=== PATIENT | male | born 2000 | race Caucasian/White ===

== ENCOUNTER 2022-01-15 15:58 | Emergency (ER) | payer BC, SELFPAY ==
--- NOTE | 2022-01-15 16:00 | DI.RAD_ITS ---
Exam(s) XR WRIST RT COMPLETE EXAM: XR WRIST RT COMPLETE CLINICAL HISTORY: dist radius pain. TECHNIQUE: 2D digital imaging was performed. COMPARISON: No exams were available for comparison FINDINGS: Four views There is a displaced fracture of the distal radius as well as fracture displacement of the ulnar styl oid. The radial fracture involves the radiocarpal joint and there is an element of dorsal dislocatio n.. There is no fracture of the scaphoid and scapholunate distance is normal. IMPRESSION: Intra-articular comminuted fracture dislocation of the distal radius. Also displaced fracture of the ulnar styloid. DATA REPOSITORY: RADIATION DOSE DELIVERED:
[2022-01-15 16:01] VITALS: BP 120/75; PULSE 77; TEMP 37.2; O2SAT 99
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
[2022-01-15] MEDS: HYDROcodone 5/Acetaminophen 325 TAB PO (16:17)
--- NOTE | 2022-01-15 17:00 | DI.RAD_ITS ---
Exam(s) XR FOREARM RT EXAM: XR FOREARM RT CLINICAL HISTORY: proximal pain, distal fx. TECHNIQUE: 2D digital imaging was performed. COMPARISON: CR,XR XR WRIST RT COMPLETE from 01/15/2022 FINDINGS: Two in splint views, compared to earlier same date. On these post reduction images distal radius fracture is again noted with significant displacement. Also ulnar styloid fracture again noted. IMPRESSION: DATA REPOSITORY: RADIATION DOSE DELIVERED:
[2022-01-15 17:05] LABS: Source Nasal/Nares
--- NOTE | 2022-01-15 17:09 | DI.VRAD_ITS ---
PROCEDURE INFORMATION: Exam: XR Right Wrist Exam date and time: 01/15/2022 4:35 PM Age: 21 years old Clinical indication: Wrist; Right; Patient HX: Distal radius pain TECHNIQUE: Imaging protocol: Radiologic exam of the Right wrist. Views: 3 or more views. COMPARISON: No relevant prior studies available. FINDINGS: Bones/joints: Ulna styloid fracture. Intra-articular distal radial fracture dislocation. Soft tissues: Soft tissue swelling of the wrist and arm. IMPRESSION: 1. Intra-articular comminuted fracture dislocation distal radius. 2. Ulna styloid fracture. Dictated and Authenticated by: Gosia Del Rio MD. Ordering:BJ Smith MD
--- NOTE | 2022-01-15 17:39 | DI.VRAD_ITS ---
PROCEDURE INFORMATION: Exam: XR Right Forearm Exam date and time: 01/15/2022 5:28 PM Age: 21 years old Clinical indication: Other: Proximal pain, distal FX TECHNIQUE: Imaging protocol: Radiologic exam of the Right forearm. Views: 2 views. COMPARISON: CR XR WRIST RT COMPLETE 03/15/2022 16:35 FINDINGS: Bones/joints: Post reduction films limited due to overlying plaster cast. Again noted ulna styloid fracture. In improved anatomic position. Intra-articular distal radial fracture again noted with ventral displacement of the fracture fragments relative to the radial shaft. Soft tissues: Unremarkable. IMPRESSION: Post reduction images wrist fracture. Distal radial fracture fragment is ventrally located in reference to the radial shaft. Dictated and Authenticated by: Gosia Del Rio MD. Ordering:BJ Smith MD
[2022-01-15 17:58] LABS: COVID-19 PCR Negative (Negative)
== END 2022-01-15 17:56 | disposition home or self-care (01) ==
PROVIDERS: Emergency Provider Emergency Medicine
DX: S52.501A Unspecified fracture of the lower end of right radius, initial encounter for closed fracture (principal); S52.611A Displaced fracture of right ulna styloid process, initial encounter for closed fracture; Z20.822 Contact with and (suspected) exposure to COVID-19; V29.00XA Motorcycle driver injured in collision with unspecified motor vehicles in nontraffic accident, initial encounter; V87.8XXA Person injured in other specified noncollision transport accidents involving motor vehicle (traffic), initial encounter; Y93.I9 Activity, other involving external motion
CPT/HCPCS: 29125; 87635; 99284; 73090; 73110

== ENCOUNTER 2022-01-16 11:29 | Day surgery (SDC) | payer BC, SELFPAY ==
[2022-01-16] VITALS (16 sets, daily range): BP systolic 103–121; BP diastolic 41–80; PULSE 56–78; RESP 12–18; TEMP 36.3–37.1; O2SAT 96–99; BMI 25.1
--- NOTE | 2022-01-16 13:44 | W.ANESPRE ---
General Info Date of Service Date Performed: 01/16/22 Height: 6 ft Weight: 84.1 kg Body Mass Index (BMI): 25.1 Surgical Procedure: Operation Date: 01/16/22 14:25 Proposed Procedure Side Surgeon p Wrist ORIF Distal Radius Right Sanford Gotti MD Meds Allergies and Home Medications Allergies Allergy/AdvReac Type Severity Reaction Status Date / Time No Known Allergies Allergy Unverified 01/16/22 12:48 Home Medication Medication Instructions Recorded hydrocodone 5 mg-acetaminophen 325 1 - 2 tab PO Q6H PRN #7 tabs 01/15/22 mg tablet Current Visit Medications: Current Medications Generic Name Dose Route Start Last Admin Trade Name Freq PRN Reason Stop Dose Admin Sodium Chloride 500 mls @ 0 mls/hr 01/16/22 07:43 Saline 500ml Bag IV PRN PRN As Directed Ringer's Solution 1,000 mls @ 30 mls/hr 01/16/22 12:00 IV INFUSION JUDY Cefazolin Sodium/Dextrose 2 gm in 50 mls @ 100 mls/hr 01/16/22 12:00 Ancef Duplex IVPB PREOP JUDY IV Miscellaneous Supplies 1 each 01/16/22 12:00 Iv Access IV DIRECTED JUDY Oxycodone HCl 5 - 10 mg 01/16/22 10:47 Oxycodone 5 Mg Tab PO Q4H PRN PRN Sodium Chloride 0 ml 01/16/22 07:43 Normal Saline Flush 10 Ml Syr IVP PRN PRN PFSH Active Problems Active Problems: Problem Status Onset Code Distal radius fracture, right 01/15/22 S52.501A Medical History Medical History (Updated 01/16/22 @ 13:10 by Rosalina Robertson) No pertinent past medical history Medical History Comments:: Mother has 2 degree heart block during Surgical History Surgical History (Updated 01/16/22 @ 13:11 by Rosalina Robertson) No pertinent past surgical history Tobacco Smoking/Tobacco Use Status: Current-Occasional Tobacco Type: smokeless tobacco Alcohol Alcohol Intake: current Alcohol intake frequency: a few times a month Alcohol type: beer Substance Use Substance use: Never Substance use type: does not use Details: alcohol: t-2, couple beers Vital Signs and Lab Results Vital Signs Most Recent Vital Signs in EMR: Most Recent Vital Signs Temp Pulse Resp BP Pulse Ox 36.3 C L 71 18 114/68 97 01/16/22 12:53 01/16/22 12:53 01/16/22 12:53 01/16/22 12:53 01/16/22 12:53 Lab Results Blood Type / Crossmatch: No Data to Display Complete Blood Count: No Data to Display Complete Metabolic Panel: No Data to Display Liver Function Panel: No Data to Display Coagulation Panel: No Data to Display Cardiac Panel: No Data to Display Arterial Blood Gas: No Data to Display Venous Blood Gas: No Data to Display Pancreas Panel: No Data to Display Thyroid Panel: No Data to Display Infectious Disease: Coronavirus (COVID-19)(PCR) Negative (Negative) 01/15/22 17:00 Coronavirus 2019 Source Nasal/Nares 01/15/22 17:00 Blood Cultures: No Data to Display Toxicology Panel: No Data to Display Anesthesia Assessment and Plan Anesthesia History Personal History: No History of General Anesthesia Family History: Other Exercise Tolerance Exercise Tolerance: Metabolic Equivalents>4 Pertinent Negatives Pertinent Negatives: No Symptoms of GERD, No Major Cardiovascular Symptoms or Complaints, No Major Pulmonary Symptoms or Complaints and No History of CVA/TIA Cardiac & Pulmonary Exam Cardiac Exam: Normal S1/S2 Heart Sounds Pulmonary Exam: Clear Bilateral Breath Sounds Implantable Cardiac Device Does patient have a Pacemaker or an ICD?: No Airway Exam Known Difficult Airway: No Mallampati Class: 2 Mouth Opening: Normal (> 3cm) Thyromental Distance: Greater than 3 cm Facial Hair: Full Bach Neck Range of Motion: Full ROM Neck Circumference: Normal Teeth Condition: Normal Dentition ASA Classification ASA Score: ASA 2 Emergency Case?: No NPO Status NPO Status: NPO Clears >2 hours, Solids >8 hours Anesthesia Plan Resuscitation Status: Full Code Anesthesia Technique: General Anesthesia Airway Planned: LMA Pain Management: Surgeon and patient request nerve block Monitors Used: Standard Monitors
--- NOTE | 2022-01-16 14:00 | DI.RAD_ITS ---
Exam(s) XR WRIST RT LIMITED EXAM: XR WRIST RT LIMITED CLINICAL HISTORY: Distal radius fracture, right. TECHNIQUE: 2D digital imaging was performed. COMPARISON: No exams were available for comparison FINDINGS: Fluoroscopy was provided during open reduction internal fixation wrist fracture. Radiologist not pre sent. Total fluoroscopy time 29 seconds. Total cumulative dose 0.4893mGy IMPRESSION: DATA REPOSITORY: RADIATION DOSE DELIVERED:
[2022-01-16] MEDS: HYDROcodone 5/Acetaminophen 325 TAB PO (14:11)
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
[2022-01-16] MEDS: ceFAZolin 2 GM/50 ML BAG IVPB (15:30)
[2022-01-16] MEDS: Lactated Ringers 1,000 ML 30 ML IV (15:30)
--- NOTE | 2022-01-16 16:00 | W.ANESNERVE ---
Nerve Block Single Injection Procedure Date and Time Date Performed: 01/16/22 Procedure Start: 15:16 Location Where Procedure Performed Procedure Location: Day Surgery Unit Reason Performed: Postoperative Analgesia Requesting Provider: Sanford Gotti Timeout Performed Timeout Performed: Yes Monitoring Used ECG, Blood Pressure, SpO2 and See EMR for corresponding vital signs Sterility Sterility: Hand Hygiene, Surgical Cap, Surgical Mask, Sterile Gloves, Eye Protection and Chlorhexidine Sedation Given During Procedure Sedation Given (Indicate Dose Given): Versed IV Dose:: 2mg Patient Mental Status Patient Mental Status: Awake Nerve Block 1st Nerve Block: Laterality: Right Block Type: Supraclavicular Needle / Catheter Used: 80mm SonoPlex II Local Anesthetic Bolus (Indicate Dose Given): Lidocaine used for local infiltration of skin, Injected in 3-5ml increments after negative blood aspiration and Bupivacaine 0.5% Dose:: 15ml Additives (Indicate Dose Given): Precedex Dose:: 50mcg Ultrasound: Sterile probe cover and gel used Ultrasound Image Saved?: Yes Nerve Stimulator: Not Used Paresthesia: None Post Procedure Pain score (0-10): 0 Procedure Tolerated: No Complications Procedure Outcome: Successful Performed By: Anika Butcher Supervised By: Shy Arriola
[2022-01-16] MEDS: Bupivacaine 0.5% Pres-Free W/EPI 30 ML VIAL (16:02)
--- NOTE | 2022-01-16 17:55 | W.PM.DSUDISC ---
Discharge Plan Disposition Patient Disposition: HOME Condition: Stable Discharge Details Reason For Visit: Right wrist surgery Attending Provider: Sanford Gotti Primary Care Provider: None,None Home Meds and New Rx's Prescriptions: New naproxen 250 mg tablet 250 - 500 mg PO BID PRNQty: 40 0RF Rx Instructions: take with a meal oxycodone 5 mg tablet 5 - 10 mg PO Q4H MDD 30 mg PRN (Reason: moderate to severe pain) Qty: 18 0RF Discontinued hydrocodone-acetaminophen 5-325 mg tablet 1 - 2 tab PO Q6H PRNQty: 7 0RF Discharge Instructions Additional Instructions: Surgery: Right distal radius open reduction internal fixation Activity: Non-weightbearing right wrist. Encourage daily range of motion fingers and thumb to prevent stiffness and increase circulation. Strict elevation the next few days. Prescriptions: Naproxen 250 mg take 1-2 every 12 hours with a meal as needed for moderate pain Oxycodone 5 mg take 1-2 every 4-6 hours as needed for severe pain You may use [id number] Tylenol (acetaminophen) as needed for mild pain. These pain medications may be taken all at once or in different combinations as needed. Also, recommend Colace (docusate) as a stool softener as surgery and pain medicine cause constipation. You may try [id number]-azv-[id number] diphenhydramine (Benadryl) 25-50 mg nightly as a sleep aid Dressings: Leave splint and dressing in place until follow-up. Keep clean and dry at all times. Follow-up: 10-[address] Gotti. You may remain out of work until after this follow-up visit. Let us know right away if you develop any redness, drainage, fevers, chest pain, or trouble breathing. Do not drink alcohol or drive for at least 24 hours after anesthesia. Please call the office during business hours with any questions or concerns. Stand Alone Forms: Anesthesia Discharge Inst., Felicia.Nerve Block Instructions, Juan Alberto Chairez ([facility]) Discharge Orders Discharge Orders: Discharge Order (Routine); Ordered 01/16/22 Ordered By: Sanford Gotti
--- NOTE | 2022-01-16 18:10 | ROE_ITS ---
Operative Note Operative Note DATE OF PROCEDURE: 01/16/22 PRE-OP DIAGNOSIS: Right displaced volar Cha intra?articular distal radius fracture POST-OP DIAGNOSIS: same PROCEDURE: Right distal radius ORIF, intra-articular 2?fragments, CPT #04457 SURGEON: Sanford Gotti PLANT GENERAL MANAGER: Jackelin Briones ANESTHESIA TYPE: Local By Surgeon, General LMA/ETT and Primary Nerve Block Refer to Anesthesia Record ESTIMATED BLOOD LOSS: 5 TOURNIQUET TIME: 0 COMPLICATIONS: None Patient was transported to: PACU Patient's condition: stable Implants: Synthes 2.4 mm VA distal radius plate with 4x 2.4 mm cortex screws Indications: Please see complete medical record for details. Procedure Description: In the operating room, general anesthesia was induced. The patient was positioned supine on the operating room table. All bony prominences were well- padded. Preoperative antibiotics were administered. The right wrist was prepped and draped in the usual sterile fashion. The correct patient, procedure, and side of the procedure were all verified prior to incision. Bupivacaine containing epinephrine was infiltrated about the planned longitudinal incision over the FCR tendon ulnar to the palpable radial artery. The incision was carried through skin, tendon sheath, tendon retracted ulnarly, through the sheath floor down to the pronator quadratus. Careful retraction was maintained on neurovascular and tendinous structures radially and ulnarly. The quadratus was released from the far radial and swept ulnarly and retracted as well. The volar cortical step-off was reduced with direct pressure and volar radial surface exposed as necessarily distally radial ulnarly and proximally for planned anti-? glide plating. An appropriately width and length distal radius plate was selected and secured provisionally with an olive wire. The reduction was good but not quite perfect owing to the precontoured plate not quite buttressing the volar radial fragment strongly. The plate was compressed down to bone with a cortex screw on the shaft. Again, the reduction was checked fluoroscopically and under direct visualization and had the slightest step-off. The plate was removed and plate benders used to under?contoured a plate for better buttress?reduction and compression across the intra-articular fracture. The plate was reapplied and to bicortical cortex screws placed securing it to the volar cortex. X-rays demonstrated excellent plate placement and fracture reduction. There was no motion at the visible fracture site either. An additional distal radial and ulnar bicortical cortex screw was placed finalizing fixation and achieving additional compression at the apex of the fracture. Fixation was inspected and found to be excellent under direct visualization and manual testing. AP, lateral, and multiple oblique views were obtained showing excellent reduction volar cortex and articular surface. Screw lengths were appropriate. The wound was copiously irrigated with normal saline. Quadratus was allowed to reapproximate itself radially over the plate. Moist lap was maintained in the wound readily achieved hemostasis. Subcu cutaneous tissue was reapproximated using 3-0 Monocryl buried interrupted. Skin was closed using 3-0 nylon horizontal mattresses. Xeroform applied over the incision followed by sterile gauze, sterile soft roll, and a volar short arm splint applied The patient awoke from anesthesia without complication and was transferred to the recovery room in a stable condition.
--- NOTE | 2022-01-16 18:46 | W.ANESPOSTOP ---
Postoperative Evaluation Date, Time and Location Date Performed: 01/16/22 Time Performed: 18:46 Patient Location: PACU Vital Signs Most Recent Imported Vital Signs: Most Recent Vital Signs Temp Pulse Resp BP Pulse Ox 37.1 C 75 14 106/56 L 99 01/16/22 18:40 01/16/22 18:40 01/16/22 18:40 01/16/22 18:40 01/16/22 18:40 Pain Score Most Recent Pain Score: Most Recent Pain Score Pain Level 5 01/16/22 15:16 Assessment Mental Status: Awake (Alert & Oriented to Patient Baseline) Airway and Respiratory Function: Patent airway with normal (patient baseline) respiratory exam Cardiovascular Function: Hemodynamically Stable Hydration Status: Adequately Hydrated Nausea & Vomiting: No Nausea or Vomiting Pain: Pt. Denies Any Pain Peripheral Nerve Block: Regional nerve block not resolved at time of post operative discharge
== END 2022-01-16 20:47 | disposition home or self-care (01) ==
LOC: SUR 16:58 → MS 19:05
PROVIDERS: Visit Provider Student in an Organized Health Care Education/Training Program
PROC: (CPT 25608; principal; 2022-01-16 14:15)
DX: S52.571A Other intraarticular fracture of lower end of right radius, initial encounter for closed fracture (principal); V29.9XXA Motorcycle rider (driver) (passenger) injured in unspecified traffic accident, initial encounter
CPT/HCPCS: 25608; 76942; 73100; G0378; J0690; J1100; J1885; J2250; J2405; J2704

== ENCOUNTER 2022-01-25 15:05 | Outpatient (CLI) | payer BC, SELFPAY ==
--- NOTE | 2022-01-25 14:45 | DI.RAD_ITS ---
Exam(s) XR WRIST RT LIMITED EXAM: XR WRIST RT LIMITED CLINICAL HISTORY: radius fx f/u. TECHNIQUE: 2D digital imaging was performed. COMPARISON: CR,XR XR WRIST RT COMPLETE from 01/15/2022 FINDINGS: Two views: There has been interval open reduction internal fixation. There is a volar fixation plate across the distal radius fracture site now evident. There is improved alignment. No hardware loosening. No r adiographic evidence of osteomyelitis. Fractured ulnar styloid again noted. IMPRESSION: DATA REPOSITORY: RADIATION DOSE DELIVERED:
== END 2022-01-25 15:06 | disposition home or self-care (01) ==
LOC: DIORS 15:05
PROVIDERS: Visit Provider Student in an Organized Health Care Education/Training Program
DX: S52.571D Other intraarticular fracture of lower end of right radius, subsequent encounter for closed fracture with routine healing (principal); V29.9XXD Motorcycle rider (driver) (passenger) injured in unspecified traffic accident, subsequent encounter
CPT/HCPCS: 73100

== ENCOUNTER 2022-01-27 10:43 | Day surgery (SDC) | payer BC, SELFPAY ==
[2022-01-27] VITALS (8 sets, daily range): BP systolic 110–118; BP diastolic 64–78; PULSE 52–70; RESP 15–19; TEMP 36.5–37.1; O2SAT 95–100; BMI 25.3
[2022-01-27] MEDS: Lactated Ringers 1,000 ML 30 ML IV (11:25)
--- NOTE | 2022-01-27 11:49 | W.ANESPRE ---
General Info Date of Service Date Performed: 01/27/22 Height: 6 ft Weight: 84.822 kg Body Mass Index (BMI): 25.3 Surgical Procedure: Operation Date: 01/27/22 13:10 Proposed Procedure Side Surgeon p Wrist Revision ORIF Distal Radius Right Sanford Gotti MD Meds Allergies and Home Medications Allergies Allergy/AdvReac Type Severity Reaction Status Date / Time No Known Allergies Allergy Unverified 01/26/22 11:41 Home Medication Medication Instructions Recorded naproxen 250 mg tablet 250 - 500 mg PO BID PRN #40 tabs 01/16/22 Current Visit Medications: Current Medications Generic Name Dose Route Start Last Admin Trade Name Freq PRN Reason Stop Dose Admin Ringer's Solution 1,000 mls @ 30 mls/hr 01/27/22 06:00 01/27/22 11:25 IV 01/27/22 16:00 30 mls/hr INFUSION JUDY Administration Cefazolin Sodium/Dextrose 2 gm in 50 mls @ 100 mls/hr 01/27/22 06:00 Ancef Duplex IVPB 01/27/22 23:59 PREOP JUDY IV Miscellaneous Supplies 1 each 01/27/22 06:00 Iv Access IV 01/27/22 23:59 DIRECTED JUDY Oxycodone HCl 0 mg 01/27/22 07:23 Oxycodone 5 Mg Tab PO Q3H PRN PRN Pain Sodium Chloride 0 ml 01/27/22 06:00 Normal Saline Flush 10 Ml Syr IV 01/27/22 23:59 PRN PRN Sodium Chloride 0 ml 01/27/22 06:00 Normal Saline 10 Ml Vial IJ 01/27/22 23:59 DIRECTED PRN Sterile Water 0 ml 01/27/22 06:00 Water,Injection,Sterile 10 Ml Vial IJ 01/27/22 23:59 DIRECTED PRN PFSH Active Problems Active Problems: Problem Status Onset Code Distal radius fracture, right 01/15/22 [id number] Medical History Medical History No pertinent past medical history Wrist fracture Medical History Comments:: Mother has 2 degree heart block during Surgical History Surgical History No pertinent past surgical history Tobacco Smoking/Tobacco Use Status: Current-Occasional Tobacco Type: smokeless tobacco Alcohol Alcohol Intake: current Alcohol intake frequency: a few times a month Alcohol type: beer Substance Use Substance use: Never Substance use type: does not use Vital Signs and Lab Results Lab Results Blood Type / Crossmatch: No Data to Display Complete Blood Count: No Data to Display Complete Metabolic Panel: No Data to Display Liver Function Panel: No Data to Display Coagulation Panel: No Data to Display Cardiac Panel: No Data to Display Arterial Blood Gas: No Data to Display Venous Blood Gas: No Data to Display Pancreas Panel: No Data to Display Thyroid Panel: No Data to Display Infectious Disease: Coronavirus (COVID-19)(PCR) Negative (Negative) 01/15/22 17:00 Coronavirus 2019 Source Nasal/Nares 01/15/22 17:00 Blood Cultures: No Data to Display Toxicology Panel: No Data to Display Anesthesia Assessment and Plan Anesthesia History Personal History: No History of Anesthesia Complications Family History: Other Exercise Tolerance Exercise Tolerance: Metabolic Equivalents>4 Pertinent Negatives Pertinent Negatives: No Symptoms of GERD, No Major Cardiovascular Symptoms or Complaints and No Major Pulmonary Symptoms or Complaints Cardiac & Pulmonary Exam Cardiac Exam: Normal S1/S2 Heart Sounds Pulmonary Exam: Clear Bilateral Breath Sounds Implantable Cardiac Device Does patient have a Pacemaker or an ICD?: No Airway Exam Known Difficult Airway: No Mallampati Class: 2 Mouth Opening: Normal (> 3cm) Thyromental Distance: Greater than 3 cm Neck Range of Motion: Full ROM Neck Circumference: Normal Teeth Condition: Normal Dentition ASA Classification ASA Score: ASA 2 Emergency Case?: No NPO Status NPO Status: NPO Clears >2 hours, Solids >8 hours Anesthesia Plan Resuscitation Status: Full Code Anesthesia Technique: General Anesthesia Airway Planned: LMA Pain Management: Surgeon and patient request nerve block Monitors Used: Standard Monitors
--- NOTE | 2022-01-27 12:15 | DI.RAD_ITS ---
Exam(s) XR WRIST RT LIMITED EXAM: XR WRIST RT LIMITED CLINICAL HISTORY: RIGHT DISTAL RADIUS FRACTURE. TECHNIQUE: 2D and realtime digital imaging was performed. COMPARISON: CR,XR XR FOREARM RT from 01/15/2022 XA XR WRIST RT LIMITED from 01/16/2022 CR XR WRIST RT LIMITED from 01/25/2022 FINDINGS: Fluoroscopy was provided in the OR. Hard copy images show placement of a volar fixation plate along the distal radius for fracture fixation. The alignment appears anatomic. Please see procedure note for details. Fluoro time: 1 minute 12seconds RADIATION DOSE DELIVERED: kasey Casas=1.42 mGy
[2022-01-27] MEDS: ceFAZolin 2 GM/50 ML BAG IVPB (13:35)
--- NOTE | 2022-01-27 14:04 | W.ANESNERVE ---
Nerve Block Single Injection Procedure Date and Time Date Performed: 01/27/22 Procedure Start: 12:15 Location Where Procedure Performed Procedure Location: Day Surgery Unit Reason Performed: Postoperative Analgesia Requesting Provider: Sanford Gotti Timeout Performed Timeout Performed: Yes Monitoring Used ECG, Blood Pressure, SpO2 and See EMR for corresponding vital signs Sterility Sterility: Hand Hygiene, Surgical Cap, Surgical Mask, Sterile Gloves and Chlorhexidine Sedation Given During Procedure Sedation Given (Indicate Dose Given): Versed IV Dose:: 2mg Patient Mental Status Patient Mental Status: Awake Nerve Block 1st Nerve Block: Laterality: Right Block Type: Supraclavicular Needle / Catheter Used: 100mm SonoPlex II Local Anesthetic Bolus (Indicate Dose Given): Lidocaine used for local infiltration of skin, Injected in 3-5ml increments after negative blood aspiration and Bupivacaine 0.5% Dose:: 20ml Additives (Indicate Dose Given): None Ultrasound: Sterile probe cover and gel used Ultrasound Image Saved?: Yes Nerve Stimulator: Not Used Paresthesia: None Procedure Tolerated: No Complications and Patient tolerated well Procedure Outcome: Successful Performed By: Brandon Crowe
[2022-01-27] MEDS: Ondansetron 4 MG/2 ML VIAL IVP (16:30)
--- NOTE | 2022-01-27 16:33 | W.PM.DSUDISC ---
Discharge Plan Disposition Patient Disposition: HOME Condition: Stable Discharge Details Reason For Visit: Right wrist surgery Attending Provider: Sanford Gtoti Primary Care Provider: None,None Home Meds and New Rx's Prescriptions: New naproxen 250 mg tablet 250 - 500 mg PO BID PRNQty: 40 0RF Rx Instructions: take with a meal Continued naproxen 250 mg tablet 250 - 500 mg PO BID PRNQty: 40 0RF Rx Instructions: take with a meal Discharge Instructions Additional Instructions: Surgery: Right distal radius revision open reduction internal fixation Activity: Non-weightbearing right wrist. Strict elevation for the next few days. Encourage daily range of motion fingers and thumb to prevent stiffness and increase circulation. Prescriptions: Naproxen 250 mg take 1-2 every 12 hours with a meal as needed for moderate pain Oxycodone 5 mg take 1-2 every 4-6 hours as needed for severe pain You may use [id number] Tylenol (acetaminophen) as needed for mild pain. These pain medications may be taken all at once or in different combinations as needed. Also, recommend Colace (docusate) as a stool softener as surgery and pain medicine cause constipation. You may try [id number] diphenhydramine (Benadryl) 25-50 mg nightly as a sleep aid Dressings: Leave splint and dressing in place until follow-up. Keep clean and dry at all times. Follow-up: 10-[address] Gotti. You may remain out of work until after this follow-up visit. Let us know right away if you develop any redness, drainage, fevers, chest pain, or trouble breathing. Do not drink alcohol or drive for at least 24 hours after anesthesia. Please call the office during business hours with any questions or concerns. Discharge Orders Discharge Orders: Discharge Order (Routine); Ordered 01/27/22 Ordered By: Sanford Gotti DS: Diagnosis Discharge Diagnosis (1) Distal radius fracture, right: Status: Acute
--- NOTE | 2022-01-27 16:51 | ROE_ITS ---
Operative Note Operative Note DATE OF PROCEDURE: 01/16/22 PRE-OP DIAGNOSIS: Right displaced intra?articular distal radius fracture failing previous fixation POST-OP DIAGNOSIS: same PROCEDURE: Right distal radius revisoin ORIF, intra-articular 3?fragments, CPT #16229 SURGEON: Sanford Gotti ASSISTING SURGEON: Felice Melendez ANESTHESIA TYPE: Local By Surgeon, General LMA/ETT and Primary Nerve Block Refer to Anesthesia Record ESTIMATED BLOOD LOSS: 10 TOURNIQUET TIME: 0 COMPLICATIONS: None Patient was transported to: PACU Patient's condition: stable Implants: Synthes 2.4 mm VA distal radius plate with 6x 2.4 mm locking and 2x cortex screws Indications: Please see complete medical record for details. Findings: Displaced shortened and rotated far ulnar distal radius intra-articular fragment Procedure Description: In the operating room, general anesthesia was induced. The patient was positioned supine on the operating room table. All bony prominences were well- padded. The prior retained nylon sutures were cleansed with alcohol and then removed. Preoperative antibiotics were administered. The right wrist was prepped and draped in the usual sterile fashion. The correct patient, procedure, and side of the procedure were all verified prior to incision. The previous incision was opened with snaps and subcutaneous Monocryl sutures removed. Soft tissues spread apart using the same interval between the FCR and radial artery. The pronator quadratus was swept ulnarly. The prior fixation was exposed. There was a L shaped shortened displaced ulnar?sided distal radius intra-articular fragment that had rotated around the previously placed plate. The ulnar-sided compression screw was removed. This could not be mobilized back underneath the under?contoured buttress type plate so the other distal screw was removed as well as the most proximal screw. The oblong screw hole screw was loosened and this fragment was attempted to be reduced and the plate were placed more distal, but the contour of the plate and the width did not best capture this fragment. The plate and screw were removed. A similarly length but a wider plate was applied using the same oblong screw and slid distal to best cover the distal and ulnar fragment. Direct pressure was held on the piece reducing the shortening and the intra-articular small gap as best possible while the variable angle drill guide was used to place a far distal and ulnar directed bicortical locking screw. Fluoroscopy confirmed appropriate fragment reduction. Additional locking screws were placed in the radial fragment and radial styloid and a second cortex screw along the proximal shaft. Carefully, an additional 2 locking screws were placed in this ulnar fragment. The initial screw removed given its proximity to the joint and replaced with 1 slightly redirected away. The wrist was examined grossly and none of the fragments especially the ulnar fragment demonstrated any looseness or motion. Live fluoroscopy was used to confirm a stable fixation. Multiple fluoroscopic views showed appropriate hardware placement and screw lengths. The wound was copiously irrigated with normal saline. The quadratus muscle was allowed to reapproximate itself radially over the plate. Moist lap was maintained in the wound readily achieved hemostasis. Subcutaneous tissue was reapproximated using 2-0 Monocryl buried interrupted. Skin was closed using 3-0 Monocryl running buried. Mastisol, Steri-Strips, Xeroform followed by 4 x 4 gauze applied over the incision. It was wrapped in sterile soft roll and then a short arm volar plaster splint applied. The patient awoke from anesthesia without complication and was transferred to the recovery room in a stable condition.
--- NOTE | 2022-01-27 17:04 | W.ANESPOSTOP ---
Postoperative Evaluation Date, Time and Location Date Performed: 01/27/22 Time Performed: 17:04 Patient Location: Day Surgery Unit Vital Signs Most Recent Imported Vital Signs: Most Recent Vital Signs Temp Pulse Resp BP Pulse Ox 36.7 C 54 L 18 110/69 96 01/27/22 16:41 01/27/22 16:41 01/27/22 16:41 01/27/22 16:41 01/27/22 16:41 Pain Score Most Recent Pain Score: Most Recent Pain Score Pain Level 0 01/27/22 16:35 Assessment Mental Status: Awake (Alert & Oriented to Patient Baseline) Airway and Respiratory Function: Patent airway with normal (patient baseline) respiratory exam Cardiovascular Function: Hemodynamically Stable Hydration Status: Adequately Hydrated Nausea & Vomiting: No Nausea or Vomiting Pain: Pt. Denies Any Pain Peripheral Nerve Block: Regional nerve block not resolved at time of post operative discharge
== END 2022-01-27 17:30 | disposition home or self-care (01) ==
PROVIDERS: Visit Provider Student in an Organized Health Care Education/Training Program
PROC: (CPT 25609; principal; 2022-01-27 13:00)
DX: T84.112A Breakdown (mechanical) of internal fixation device of bone of right forearm, initial encounter (principal); S52.571A Other intraarticular fracture of lower end of right radius, initial encounter for closed fracture; X58.XXXA Exposure to other specified factors, initial encounter
CPT/HCPCS: 25609; 76000; 76942; 73100; J0690; J1100; J1885; J2250; J2405; J2704

== ENCOUNTER 2022-02-08 14:47 | Outpatient (CLI) | payer BC, SELFPAY ==
--- NOTE | 2022-02-08 14:47 | DI.RAD_ITS ---
Exam(s) XR WRIST RT LIMITED EXAM: XR WRIST RT LIMITED INDICATION: radius fx f/u. COMPARISON: CR XR WRIST RT LIMITED from 01/25/2022 TECHNIQUE: 2D digital imaging was performed. Two views. FINDINGS: There has been no change in fracture or hardware alignment. DATA REPOSITORY: RADIATION DOSE DELIVERED:
== END 2022-02-08 14:48 | disposition home or self-care (01) ==
LOC: DIORS 14:47
PROVIDERS: Visit Provider Student in an Organized Health Care Education/Training Program
DX: S52.571D Other intraarticular fracture of lower end of right radius, subsequent encounter for closed fracture with routine healing; X58.XXXD Exposure to other specified factors, subsequent encounter
CPT/HCPCS: 73100

== ENCOUNTER 2022-03-07 15:32 | Outpatient (CLI) | payer BC, SELFPAY ==
--- NOTE | 2022-03-07 14:45 | DI.RAD_ITS ---
Exam(s) XR WRIST RT LIMITED EXAM: XR WRIST RT LIMITED CLINICAL HISTORY: RIGHT WRIST F/U. TECHNIQUE: 2D digital imaging was performed. COMPARISON: CR XR WRIST RT LIMITED from 02/08/2022 FINDINGS: Two views: There is continued stable position/appearance of the volar fixation plate across the distal radial fr acture site. No change. Fractured ulnar styloid is again noted. Scaphoid appears unremarkable as d oes the scapholunate distance. No radiographic evidence of hardware loosening nor osteomyelitis. IMPRESSION: DATA REPOSITORY: RADIATION DOSE DELIVERED:
== END 2022-03-07 15:33 | disposition home or self-care (01) ==
LOC: DIORS 15:33
PROVIDERS: Visit Provider Student in an Organized Health Care Education/Training Program
DX: S52.571D Other intraarticular fracture of lower end of right radius, subsequent encounter for closed fracture with routine healing; X58.XXXD Exposure to other specified factors, subsequent encounter; S52.611D Displaced fracture of right ulna styloid process, subsequent encounter for closed fracture with routine healing
CPT/HCPCS: 73100

== ENCOUNTER 2022-04-18 14:46 | Outpatient (CLI) | payer BC, SELFPAY ==
--- NOTE | 2022-04-18 14:30 | DI.RAD_ITS ---
Exam(s) XR WRIST RT LIMITED EXAM: XR WRIST RT LIMITED CLINICAL HISTORY: distal radius fx f/u. TECHNIQUE: 2D digital imaging was performed. Four images were obtained. PA and lateral views were o btained. COMPARISON: CR XR WRIST RT LIMITED from 03/07/2022 FINDINGS: BONES: There are stable post operative changes present. No new fracture or dislocation. There is a n onunited ulnar styloid process fracture. The distal radial fracture line is not visualized. JOINTS: The joint spaces are well maintained. No joint effusion is present. SOFT TISSUE: Normal. IMPRESSION: Stable postoperative changes. DATA REPOSITORY: RADIATION DOSE DELIVERED:
== END 2022-04-18 14:47 | disposition home or self-care (01) ==
LOC: DIORS 14:46
PROVIDERS: Visit Provider Student in an Organized Health Care Education/Training Program
DX: S52.501D Unspecified fracture of the lower end of right radius, subsequent encounter for closed fracture with routine healing (principal); X58.XXXD Exposure to other specified factors, subsequent encounter
CPT/HCPCS: 73100